=== PATIENT | female | born 1980 | race African-American/Black ===

== ENCOUNTER 2017-10-20 05:11 | Emergency (ER) | payer MEDICARE, MEDICAID ==
[~2017-10-20] VITALS: Ht 157.5 cm; Wt 77.0 kg
[~2017-10-20 05:11] MED LIST: DEPAKOTE PO; RISP3 PO
[2017-10-20 05:16] VITALS: BP 131/70; PULSE 90; RESP 16; TEMP 98.6; O2SAT 100
--- NOTE | 2017-10-20 05:34 | PD ---
HPI Chief Complaint: Oral / Dental Pain or Problem Time Seen by Provider: 05:33 Travel History International Travel<30 days: No Contact w/Intl Traveler<30days: No Traveled to known affect area: No History of Present Illness HPI 37-year-old black female presents emergency department requesting evaluation of dental pain. She states that she had a filling fall out of her left upper tooth sometime ago. She states now she has had increasing decay and part of the tooth fractured off 2 days ago. Pain is mild. No alleviating factors. Worse with hot and cold History Past Medical Histgory Medical History: Denies Significant Hx Tetanus Vaccination: < 5 Years LMP: 10/16/17 Menopausal: No Hx Cancer: No Past Surgical History Surgical History: No Previous Surgery Social History Alcohol Use: Yes (ON OCCASION) Tobacco Use: No Allergies-Medications (Allergen,Severity, Reaction): Coded Allergies: No Known Allergies (Verified , 09/23/07) Reported Meds & Prescriptions Reported Meds & Active Scripts Active Review of Systems General / Constitutional: No: Fever Eyes: No: Visual changes HENT: Positive: Dental Difficulties, No: Headaches, Sore Throat, Neck Stiffness , Neck Pain, Earache Cardiovascular: No: Chest Pain or Discomfort Respiratory: No: Shortness of Breath Gastrointestinal: No: Abdominal Pain Genitourinary: No: Dysuria Musculoskeletal: No: Pain Skin: No Rash Neurologic: No: Weakness Psychiatric: No: Depression Endocrine: No: Polydipsia Hematologic/Lymphatic: No: Easy Bruising Physical Exam Narrative GENERAL: Well-developed, well-nourished in no acute distress. Nontoxic appearing. HEAD: Normocephalic, atraumatic. EYES: Pupils equal round and reactive. Extraocular motions intact. No scleral icterus. No injection or drainage. ENT: TMs clear without erythema. The external auditory canals clear. Nose: clear . Posterior pharynx is pink and moist. No tonsillar edema or exudate. Uvula midline. Airway patent. Poor dentition. She has a fracture of the cusp of a left upper molar. NECK: Trachea midline.Supple, nontender, moves head freely. No central bony tenderness or spasm. CARDIOVASCULAR: Regular rate and rhythm without murmurs, gallops, or rubs. RESPIRATORY: Clear to auscultation. Breath sounds equal bilaterally. No wheezes , rales, or rhonchi. GASTROINTESTINAL: Abdomen soft, non-tender, nondistended. No hepato-splenomegaly , or palpable masses. No guarding. EXTREMITIES: No clubbing, cyanosis, or edema. No joint tenderness, effusion, or edema noted. BACK: Nontender without deformity or crepitance. No flank tenderness. Data Data Last Documented VS Vital Signs Date Time Temp Pulse Resp B/P (MAP) Pulse Ox O2 Delivery O2 Flow Rate FiO2 10/20/17 05:16 98.6 90 16 131/70 (90) 100 Room Air MDM Medical Screen Exam Complete: Yes Emergency Medical Condition: No Differential Diagnosis MDM: Moderate Differential diagnoses: Dental abscess, dental caries, osteitis, cellulitis Narrative Course A medical screening exam was performed: At the time of evaluation the presenting medical condition was determined not to be of an emergent nature. The patient was given the option of receiving additional care, but declined. Patient was given options for additional community resources from which to obtain care. The Patient Has Been advised to seek medical attention for their presenting complaint. The patient has been advised to return to the ER at any time if an emergent condition develops. Primary Impression: Encounter for medical screening examination Condition: Marcello Martell October 20, 2017 05:34
== END 2017-10-20 06:02 | disposition left against medical advice (07) ==
LOC: NEPD 05:11
DX: K08.89 Other specified disorders of teeth and supporting structures (principal)
CPT/HCPCS: 99281

== ENCOUNTER 2017-10-23 11:40 | Emergency (ER) | payer MEDICARE, MEDICAID ==
[~2017-10-23] VITALS: Ht 157.5 cm; Wt 80.0 kg
[2017-10-23 11:45] VITALS: BP 123/61; PULSE 71; RESP 16; TEMP 98; O2SAT 100
[2017-10-23] MEDS ORDERED: MUPI2%T TOPICAL (12:10)
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
== END 2017-10-23 13:13 | disposition home or self-care (01) ==
LOC: NEPK 11:40
DX: S50.312A Abrasion of left elbow, initial encounter (principal); S61.412A Laceration without foreign body of left hand, initial encounter; X99.8XXA Assault by other sharp object, initial encounter; Y92.89 Other specified places as the place of occurrence of the external cause; F31.9 Bipolar disorder, unspecified; F41.9 Anxiety disorder, unspecified; F20.9 Schizophrenia, unspecified
CPT/HCPCS: 99283